=== PATIENT | male | born 1975 | race African-American/Black ===

== ENCOUNTER 2020-12-05 19:03 | Inpatient (IN) | payer SELFPAY ==
[~2020-12-05] VITALS: Ht 198.1 cm; Wt 84.9 kg
[2020-12-05] MEDS ORDERED: ONDANSETRON HCL 4MG/2ML INJ IV STA (19:38)
[2020-12-05] MEDS ORDERED: ACETAMINOPHEN 325MG TABLET PO STA (19:38)
[2020-12-05] MEDS ORDERED: AZITHROMYCIN 500 MG in DEXT 5% WATER 250 ML IV STA (19:47)
[2020-12-05] MEDS ORDERED: DEXAMETHASONE 10 MG/ML VIAL IV ONE (20:00)
[2020-12-05] MEDS ORDERED: CEFTRIAXONE 1 G PREMIX 50 ML IV ONE (20:00)
[2020-12-05 21:56] LABS: BASOPHILS % 0.3 % (0.0-2.0); HEMATOCRIT. 45.9 % (42.0-52.0); HEMOGLOBIN. 16.4 g/dL (14.0-18.0); LYMPHOCYTES % 11.6 % (20.0-50.0); MEAN CORPUSCULAR HEMOGLOBIN 33.3 pg (28.0-32.0); MEAN CORPUSCULAR VOLUME 93.2 fL (80.0-94.0); MEAN PLATELET VOLUME 8.9 fl (7.4-10.4); MONOCYTES % 10.7 % (2.0-8.0); NEUTROPHILS % 77.4 % (40.0-76.0); PLATELET 288 x1000/uL (130-400); RED BLOOD CELL COUNT 4.93 mill/uL (4.7-6.1); RED CELL DISTRIBUTION WIDTH 13.1 % (11.6-14.6)
[2020-12-05 22:05] LABS: CHLORIDE 92 mEq/L (98-107)
[2020-12-05 22:09] LABS: D-DIMER 0.41 mg/L FEU (<0.50); INR 1.1; PROTHROMBIN TIME 11.5 sec (9.6-11.0)
[2020-12-05 22:13] LABS: CREATINE KINASE 63 IU/L (39-308)
[2020-12-06] VITALS (8 sets, daily range): BP systolic 106–116; BP diastolic 64–83
[2020-12-06] MEDS ORDERED: LORAZEPAM 2MG/ML CPJ IV PRN (01:00)
[2020-12-06] MEDS ORDERED: CEFTRIAXONE 1 G PREMIX 50 ML IV SCH (01:15)
[2020-12-06 06:00] LABS: BASOPHILS % 0.3 % (0.0-2.0); HEMATOCRIT. 50.9 % (42.0-52.0); HEMOGLOBIN. 17.8 g/dL (14.0-18.0); LYMPHOCYTES % 16.7 % (20.0-50.0); MEAN CORPUSCULAR HEMOGLOBIN 33.1 pg (28.0-32.0); MEAN CORPUSCULAR VOLUME 94.7 fL (80.0-94.0); MEAN PLATELET VOLUME 9.2 fl (7.4-10.4); MONOCYTES % 9.4 % (2.0-8.0); NEUTROPHILS % 73.6 % (40.0-76.0); PLATELET 285 x1000/uL (130-400); RED BLOOD CELL COUNT 5.37 mill/uL (4.7-6.1); RED CELL DISTRIBUTION WIDTH 13.2 % (11.6-14.6)
[2020-12-06 06:06] LABS: CHLORIDE 90 mEq/L (98-107)
[2020-12-06] MEDS: ALBUTEROL 6.7GM HFA INHALER ORI PRN ×2 (06:10→06:12)
[2020-12-06] MEDS: CHLORDIAZEPOXIDE 5 MG CAPSULE PO SCH ×2 (10:05→22:37)
[2020-12-06] MEDS: ENOXAPARIN 40MG/0.4ML SYR SUBCUT SCH (10:05)
[2020-12-06] MEDS: DEXAMETHASONE 10 MG/ML VIAL IV SCH (11:20)
[2020-12-06] MEDS: CEFTRIAXONE 1,000 MG in DEXTROSE 5% WATER 50 ML IV SCH (22:37)
[2020-12-06] MEDS: AZITHROMYCIN 500 MG in DEXT 5% WATER 250 ML IV SCH (22:37)
[2020-12-06] MEDS: ACETAMINOPHEN 325MG TABLET PO PRN (22:38)
[2020-12-06] MEDS: GUAIFENESIN-DM 200MG-20MG/10ML UDC PO PRN (22:57)
[2020-12-07 04:00] VITALS: BP 108/74
[2020-12-07 08:00] VITALS: BP 116/78
[2020-12-07] MEDS: DEXAMETHASONE 10 MG/ML VIAL IV SCH (08:12)
[2020-12-07] MEDS: CHLORDIAZEPOXIDE 5 MG CAPSULE PO SCH ×2 (08:12→20:51)
[2020-12-07] MEDS: ACETAMINOPHEN 325MG TABLET PO PRN ×2 (08:13→12:17)
[2020-12-07] MEDS: ENOXAPARIN 40MG/0.4ML SYR SUBCUT SCH (08:14)
[2020-12-07 12:00] VITALS: BP 92/64
[2020-12-07 16:00] VITALS: BP 113/76
[2020-12-07 17:00] LABS: *AMPHETAMINES SCREEN URINE NEGATIVE (NEGATIVE); *BARBITURATES SCREEN URINE NEGATIVE (NEGATIVE); CANNABINOID URINE SCREEN NEGATIVE (NEGATIVE)
[2020-12-07 17:02] LABS: *BENZODIAZEPINES SCREEN URINE PRESUMTIVE POSITIVE (NEGATIVE); *COCAINE SCREEN URINE NEGATIVE (NEGATIVE); OPIATES URINE SCREEN NEGATIVE (NEGATIVE); PHENCYCLIDINE URINE SCREEN NEGATIVE (NEGATIVE)
[2020-12-07 17:03] LABS: METHADONE URINE SCREEN NEGATIVE (NEGATIVE)
[2020-12-07] MEDS: CEFTRIAXONE 1,000 MG in DEXTROSE 5% WATER 50 ML IV SCH (19:46)
[2020-12-07 20:00] VITALS: BP 102/74
[2020-12-07] MEDS: AZITHROMYCIN 500 MG in DEXT 5% WATER 250 ML IV SCH (20:51)
[2020-12-08] VITALS: BP 121/72
[2020-12-08 04:00] VITALS: BP 111/74
[2020-12-08 06:51] LABS: CHLORIDE 93 mEq/L (98-107)
[2020-12-08 06:56] LABS: BASOPHILS % 0.5 % (0.0-2.0); HEMATOCRIT. 48.7 % (42.0-52.0); LYMPHOCYTES % 16.2 % (20.0-50.0); MEAN CORPUSCULAR HEMOGLOBIN 32.8 pg (28.0-32.0); MEAN CORPUSCULAR VOLUME 94.1 fL (80.0-94.0); MEAN PLATELET VOLUME 9.1 fl (7.4-10.4); MONOCYTES % 6.7 % (2.0-8.0); NEUTROPHILS % 76.6 % (40.0-76.0); PLATELET 428 x1000/uL (130-400); RED BLOOD CELL COUNT 5.18 mill/uL (4.7-6.1); RED CELL DISTRIBUTION WIDTH 13.2 % (11.6-14.6)
[2020-12-08 08:00] VITALS: BP 112/78
[2020-12-08] MEDS: DEXAMETHASONE 10 MG/ML VIAL IV SCH (08:33)
[2020-12-08] MEDS: ENOXAPARIN 40MG/0.4ML SYR SUBCUT SCH (08:33)
[2020-12-08] MEDS: CHLORDIAZEPOXIDE 5 MG CAPSULE PO SCH ×2 (08:34→20:21)
[2020-12-08 12:00] VITALS: BP 116/80
[2020-12-08] MEDS ORDERED: POTASSIUM CHLORIDE 20MEQ TABLET SR PO SCH (14:15)
[2020-12-08 15:02] LABS: BG BASE EXCESS 6.1 mmol/L (-2.0-2.0); BG CARBOXYHEMOGLOBIN 0.3 % (0.5-1.5); BG DEOXYHEMOGLOBIN 10.2 % (0.0-5.0); BG HCO3 ACT 29.6 mmol/L (22.0-26.0); BG METHEMOGLOBIN 0.3 % (0.0-1.5); BG OXYGEN SATURATION 89.7 % (92.0-98.5); BG OXYHEMOGLOBIN 89.2 % (94.0-97.0); BG PCO2 38.9 mmHg (35.0-45.0); BG PH 7.499 (7.350-7.450); BG SAMPLE SITE RIGHT BRACHIAL; BG TOTAL HEMOGLOBIN 17.9 g/dL (12.0-18.0); BG VENT MODE ROOM AIR
[2020-12-08 16:00] VITALS: BP 115/76
[2020-12-08 20:00] VITALS: BP 104/78
[2020-12-08] MEDS: CEFTRIAXONE 1,000 MG in DEXTROSE 5% WATER 50 ML IV SCH (20:20)
[2020-12-08] MEDS: AZITHROMYCIN 500 MG in DEXT 5% WATER 250 ML IV SCH (20:20)
[2020-12-08] MEDS: GUAIFENESIN-DM 200MG-20MG/10ML UDC PO PRN (20:21)
[2020-12-09] VITALS: BP 107/78
[2020-12-09 04:00] VITALS: BP 102/70
[2020-12-09 08:00] VITALS: BP 112/69
[2020-12-09] MEDS: DEXAMETHASONE 10 MG/ML VIAL IV SCH (08:44)
[2020-12-09] MEDS: ENOXAPARIN 40MG/0.4ML SYR SUBCUT SCH (08:44)
[2020-12-09] MEDS: ACETAMINOPHEN 325MG TABLET PO PRN (08:45)
[2020-12-09] MEDS: CHLORDIAZEPOXIDE 5 MG CAPSULE PO SCH ×2 (09:13→20:13)
[2020-12-09 11:48] VITALS: BP 98/70
[2020-12-09 15:50] VITALS: BP 103/70
[2020-12-09] MEDS: GUAIFENESIN-DM 200MG-20MG/10ML UDC PO PRN (17:12)
[2020-12-09 20:00] VITALS: BP 109/76
[2020-12-09] MEDS: CEFTRIAXONE 1,000 MG in DEXTROSE 5% WATER 50 ML IV SCH (20:13)
[2020-12-09] MEDS: AZITHROMYCIN 500 MG in DEXT 5% WATER 250 ML IV SCH (20:13)
[2020-12-10] VITALS (7 sets, daily range): BP systolic 101–123; BP diastolic 71–84
[2020-12-10] MEDS: GUAIFENESIN-DM 200MG-20MG/10ML UDC PO PRN (04:09)
[2020-12-10] MEDS: CHLORDIAZEPOXIDE 5 MG CAPSULE PO SCH ×2 (08:33→19:51)
[2020-12-10] MEDS: DEXAMETHASONE 10 MG/ML VIAL IV SCH (08:35)
[2020-12-10] MEDS: ENOXAPARIN 40MG/0.4ML SYR SUBCUT SCH (08:36)
[2020-12-10] MEDS: CEFTRIAXONE 1,000 MG in DEXTROSE 5% WATER 50 ML IV SCH (19:51)
[2020-12-11 00:09] VITALS: BP 127/80
[2020-12-11 04:00] VITALS: BP 126/78
[2020-12-11 08:00] VITALS: BP 135/72
[2020-12-11] MEDS: ENOXAPARIN 40MG/0.4ML SYR SUBCUT SCH (09:09)
[2020-12-11] MEDS: DEXAMETHASONE 10 MG/ML VIAL IV SCH (09:10)
[2020-12-11] MEDS: CHLORDIAZEPOXIDE 5 MG CAPSULE PO SCH (09:10)
[2020-12-11 12:00] VITALS: BP 112/78
[2020-12-11 16:00] VITALS: BP 119/88
[2020-12-11 20:00] VITALS: BP 120/83
[2020-12-12] VITALS: BP 123/82
[2020-12-12 04:00] VITALS: BP 122/92
[2020-12-12 08:00] VITALS: BP 103/76
[2020-12-12] MEDS: ENOXAPARIN 40MG/0.4ML SYR SUBCUT SCH (09:19)
[2020-12-12] MEDS: DEXAMETHASONE 10 MG/ML VIAL IV SCH (09:20)
[2020-12-12 12:00] VITALS: BP 110/76
[2020-12-12 16:00] VITALS: BP 110/73
[2020-12-12 20:23] VITALS: BP 126/77
[2020-12-13 00:31] VITALS: BP 113/82
[2020-12-13 04:00] VITALS: BP 112/83
[2020-12-13 08:00] VITALS: BP 114/79
[2020-12-13] MEDS: DEXAMETHASONE 10 MG/ML VIAL IV SCH (10:12)
[2020-12-13] MEDS: ENOXAPARIN 40MG/0.4ML SYR SUBCUT SCH (10:13)
[2020-12-13 12:00] VITALS: BP 102/67
[2020-12-13 16:00] VITALS: BP 109/76
[2020-12-13 20:00] VITALS: BP 111/83
[2020-12-14 00:26] VITALS: BP 127/91
[2020-12-14 04:00] VITALS: BP 118/63
[2020-12-14 07:22] LABS: BASOPHILS % 0.6 % (0.0-2.0); EOSINOPHILS % 0.2 % (0.0-5.0); HEMATOCRIT. 44.5 % (42.0-52.0); HEMOGLOBIN. 15.6 g/dL (14.0-18.0); LYMPHOCYTES % 11.9 % (20.0-50.0); MEAN CORPUSCULAR HEMOGLOBIN 32.8 pg (28.0-32.0); MEAN CORPUSCULAR VOLUME 93.9 fL (80.0-94.0); MEAN PLATELET VOLUME 8.1 fl (7.4-10.4); NEUTROPHILS % 79.3 % (40.0-76.0); PLATELET 551 x1000/uL (130-400); RED BLOOD CELL COUNT 4.74 mill/uL (4.7-6.1); RED CELL DISTRIBUTION WIDTH 13.4 % (11.6-14.6)
[2020-12-14] MEDS: DEXAMETHASONE 10 MG/ML VIAL IV SCH (08:26)
[2020-12-14] MEDS: ENOXAPARIN 40MG/0.4ML SYR SUBCUT SCH (08:27)
[2020-12-14 09:08] LABS: CHLORIDE 104 mEq/L (98-107)
[2020-12-14 12:00] VITALS: BP 121/83
[2020-12-14 16:00] VITALS: BP 116/81
== END 2020-12-14 20:00 | disposition left against medical advice (07) | DRG 720 ==
LOC: ER 19:03 → EDBD 19:03 → 7WST 22:14 → EDBEDREQTM 22:19 → EDBEDREQ 22:19 → ENRESERV 23:49
PROVIDERS: ADMIT Internal Medicine; ATTEND Internal Medicine
DX: A41.89 Other specified sepsis (principal); J96.01 Acute respiratory failure with hypoxia; U07.1 COVID-19; J12.82 Pneumonia due to coronavirus disease 2019; Z53.29 Procedure and treatment not carried out because of patient's decision for other reasons; E44.0 Moderate protein-calorie malnutrition; E87.1 Hypo-osmolality and hyponatremia; E87.6 Hypokalemia; F10.10 Alcohol abuse, uncomplicated; R74.01 Elevation of levels of liver transaminase levels; Z68.21 Body mass index [BMI] 21.0-21.9, adult
CPT/HCPCS: 36415; 36600; 71045; 80048; 80053; 80305; 82375; 82550; 82728; 82805; 83605; 83615; 83880; 84145; 84484; 85025; 85379; 85384; 86140; 87635; 93005; 99291; J0456; J0696; J1100; J1650; J2405; J7060

== ENCOUNTER 2021-10-29 17:25 | Emergency (ER) | payer SELFPAY ==
[~2021-10-29] VITALS: Ht 198.1 cm; Wt 100.0 kg
[2021-10-29] MEDS ORDERED: LEVETIRACETAM 1000MG PREMIX 100 ML IV ONE (19:45)
[2021-10-29 19:57] LABS: HEMATOCRIT. 42.6 % (42.0-52.0); HEMOGLOBIN. 14.7 g/dL (14.0-18.0); MEAN CORPUSCULAR VOLUME 95.3 fL (80.0-94.0); MEAN PLATELET VOLUME 7.8 fl (7.4-10.4); PLATELET 220 x1000/uL (130-400); RED BLOOD CELL COUNT 4.47 mill/uL (4.7-6.1); RED CELL DISTRIBUTION WIDTH 13.7 % (11.6-14.6)
[2021-10-29 20:02] LABS: CHLORIDE 100 mEq/L (98-107)
[2021-10-29 20:11] LABS: ETHANOL BLOOD < 10 mg/dL
[2021-10-29 21:45] LABS: PLATELET ESTIMATE NORMAL
[2021-10-29 23:52] LABS: CLARITY URINE CLEAR (CLEAR); COLOR URINE YELLOW (YELLOW); KETONES URINE 2+ (NEGATIVE); LEUKOCYTE ESTERASE URINE NEGATIVE (NEGATIVE); NITRITE URINE NEGATIVE (NEGATIVE); OCCULT BLOOD URINE NEGATIVE (NEGATIVE); PROTEIN URINE 1+ (NEGATIVE)
[2021-10-30 00:07] LABS: *AMPHETAMINES SCREEN URINE NEGATIVE (NEGATIVE); *BARBITURATES SCREEN URINE NEGATIVE (NEGATIVE); *BENZODIAZEPINES SCREEN URINE NEGATIVE (NEGATIVE); *COCAINE SCREEN URINE NEGATIVE (NEGATIVE); CANNABINOID URINE SCREEN NEGATIVE (NEGATIVE); METHADONE URINE SCREEN NEGATIVE (NEGATIVE); OPIATES URINE SCREEN NEGATIVE (NEGATIVE); PHENCYCLIDINE URINE SCREEN NEGATIVE (NEGATIVE)
[2021-10-30] MEDS ORDERED: IBUPROFEN 600MG TABLET PO ONE (01:30)
[2021-10-30] MEDS ORDERED: ACETAMINOPHEN 325MG TABLET PO ONE (01:30)
[2021-10-30] MEDS ORDERED: KEPP500 MT (01:36)
[2021-10-30 04:51] VITALS: BP 133/72
== END 2021-10-30 04:52 | disposition home or self-care (01) ==
LOC: ER 17:25
DX: G40.909 Epilepsy, unspecified, not intractable, without status epilepticus (principal)
CPT/HCPCS: 36415; 70450; 73030; 80053; 80305; 80320; 81003; 85025; 96365; 99285; J1953; G0480